=== PATIENT | female | born 1990 | race Caucasian/White ===

== ENCOUNTER → 2017-10-18 | Outpatient (CLI) | payer OTHER ==
[~2017-10-18] MED LIST: AMOXIL500 MG PO; BACTRIM DS 8001 TA1 PO; BIRTH CONTROL1 EAC1 PO; CIPRO500 MG PO; CIPROFLOXACIN500 MG PO; COUMADIN2 MG PO; DIFLUCAN200 MG PO; DILAUDID2 MG PO; DOXYCYCLINE100 M3 PO; ENOXAPARIN60 MG/0.2 SQ; ERRIN0.35 M1 PO; Flagyl500 MG PO; HYDROCODONE BIT1 T11 PO; KEFLEX500 MG PO; LABETALOL100 MG PO; MACROBID100 M1 PO; MOTRIN400 MG PO; MOTRIN600 MG PO; MOTRIN800 MG PO; PEN-VK500 MG PO; PERCOCET 325 MG1 TA2 PO; PREDNISONE10 MG PO; PRENATAL1 TA3 PO; PREPLUS CA-FE1 EACH PO; PYRIDIUM200 M1 PO; ULTRAM50 MG PO; VICODIN 5/500 505 MG PO; VICODIN ES 7501 TAB PO; ZOFRAN ODT4 MG SL; ZOFRAN4 MG PO
== END | disposition home or self-care (01) ==
LOC: US 11:19
DX: M79.605 Pain in left leg (principal); R60.0 Localized edema

== ENCOUNTER 2019-06-13 17:58 | Emergency (ER) | payer OTHER ==
[~2019-06-13] VITALS: Ht 170.1 cm; Wt 108.9 kg
[2019-06-13 18:00] VITALS: BP 128/82
[2019-06-13] MEDS ORDERED: DOXYCYCLINE100 M3 PO (18:39)
[2019-06-13] MEDS ORDERED: ROBAXIN-750750 MG PO (18:39)
[2019-06-13] MEDS ORDERED: IBUPROFEN600 MG PO (18:39)
[2019-06-13] MEDS ORDERED: Bactroban Oint22 GM T (18:40)
== END 2019-06-13 18:44 | disposition home or self-care (01) ==
LOC: ED 17:58
DX: S33.5XXA Sprain of ligaments of lumbar spine, initial encounter (principal); L03.113 Cellulitis of right upper limb; Z98.890 Other specified postprocedural states; Z79.899 Other long term (current) drug therapy; Z88.8 Allergy status to other drugs, medicaments and biological substances; V49.88XA Car occupant (driver) (passenger) injured in other specified transport accidents, initial encounter; Y93.89 Activity, other specified; Y92.413 State road as the place of occurrence of the external cause; Y99.9 Unspecified external cause status